=== PATIENT | female | born 1985 | race African-American/Black ===

== ENCOUNTER 2020-08-05 19:30 | Emergency (ER) | payer SELFPAY ==
[~2020-08-05] VITALS: Ht 160 cm; Wt 82.0 kg
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
[2020-08-05] MEDS ORDERED: TRAM-48 PO (20:03)
--- NOTE | 2020-08-05 20:18 | RAD ---
Exam: Right hand 3 views INDICATION: Hand pain TECHNIQUE: Frontal, lateral and oblique views of the right hand Comparisons: None FINDINGS: Bone mineralization is normal. No acute or healed fractures. Soft tissues are unremarkable. Joint spa nika are well-maintained. IMPRESSION: No acute osseous abnormality. Electronically signed by: Moose Streeter MD (08/05/2020 8:15 PM) [facility]
[2020-08-05 20:22] VITALS: BP 212/125
== END 2020-08-05 20:25 | disposition home or self-care (01) ==
LOC: ER 19:30
DX: M79.641 Pain in right hand (principal); G89.11 Acute pain due to trauma; W50.1XXA Accidental kick by another person, initial encounter; Y93.89 Activity, other specified; Y92.89 Other specified places as the place of occurrence of the external cause; Y99.8 Other external cause status
CPT/HCPCS: 73130; 81025; 99283